=== PATIENT | male | born 1940 | race Caucasian/White ===

== ENCOUNTER 2020-05-12 11:06 | Outpatient (CLI) | payer MEDICARE | END 2020-05-12 11:07 | disposition home or self-care (01) | LOC: CSHCT 11:06 | PROVIDERS: ATTEND Neurological Surgery | DX: S06.6X0A Traumatic subarachnoid hemorrhage without loss of consciousness, initial encounter (principal) | CPT/HCPCS: 70450 ==

== ENCOUNTER 2022-02-14 16:25 | Emergency (ER) | payer MEDICARE, OTHER ==
[2022-02-14] MEDS ORDERED: Meclizine HCl 25 MG TAB ONE (16:56)
[2022-02-14 17:13] LABS: #Basophils 0.1 10x3/uL (0.0-0.2); #Eosinphils 0.1 10x3/uL (0.0-0.5); #Monocytes 0.5 10x3/uL (0.0-1.1); #Neutrophils 5.3 10x3/uL (1.5-8.4); %Basophils 0.9 % (0.0-2.0); %Eosinophils 0.9 % (0.0-6.0); %Lymphocytes 12.1 % (18.0-47.0); %Monocytes 6.7 % (0.0-10.0); %Neutrophils 79.3 % (40.0-75.0); Hemoglobin 14.2 g/dL (13.5-17.5); Mean Corpuscular HGB CONC 34.5 g/dL (32.0-36.0); Mean Corpuscular Volume 92.8 fl (81.2-95.1); Mean Platelet Volume 9.9 fl (7.4-10.4); Platelet Count 232 10x3/uL (150-450); RBC Distribution Width 12.7 % (11.5-14.5); Red Blood Cell (RBC) Count 4.44 10x6/uL (4.32-5.72); White Blood Cell (WBC) Count 6.7 10x3/uL (3.5-10.5)
[2022-02-14 17:25] LABS: ALT (SGPT) 21 U/L (8-55); AST (SGOT) 23 U/L (5-34); Albumin 4.3 g/dL (3.4-4.8); Alkaline Phosphatase 75 U/L (40-110); Anion Gap 13 mmol/L (10-20); BUN (Urea Nitrogen) 16 mg/dL (8.4-25.7); Bilirubin, Total 0.6 mg/dL (0.2-1.2); CK (CPK) 61 U/L (30-200); Calc. Creatinine Clearance 0 mL/min (70-130); Calcium 9.2 mg/dL (7.8-10.44); Carbon Dioxide 26 mmol/L (23-31); Chloride 104 mmol/L (98-107); Estimated GFR 88; Glucose 224 mg/dL (83-110); Potassium 4.1 mmol/L (3.5-5.1); Protein, Total 6.3 g/dL (5.8-8.1); Sodium 139 mmol/L (136-145)
== END 2022-02-14 18:21 | disposition home or self-care (01) ==
LOC: CSHERS 16:25
DX: H81.399 Other peripheral vertigo, unspecified ear (principal); I10 Essential (primary) hypertension; Z87.891 Personal history of nicotine dependence
CPT/HCPCS: 36416; 70450; 80053; 82550; 84484; 85025; 93005